=== PATIENT | male | born 1970 | race Caucasian/White ===

== ENCOUNTER → 2022-01-26 09:04 | Outpatient (BNVA) | payer OTHER, SELFPAY | PROVIDERS: Visit Provider Nurse Practitioner Family | DX: E78.5 Hyperlipidemia, unspecified (principal); M10.9 Gout, unspecified; I10 Essential (primary) hypertension; Z72.0 Tobacco use | CPT/HCPCS: 80053; 80061; 84550 ==

== ENCOUNTER → 2023-02-24 11:56 | Outpatient (BNVA) | payer OTHER, SELFPAY | PROVIDERS: PCP Clinical Nurse Specialist Adult Health; Visit Provider Clinical Nurse Specialist Adult Health | DX: I10 Essential (primary) hypertension (principal) | CPT/HCPCS: 80053; 80061; 84443; 85025 ==

== ENCOUNTER 2024-01-16 13:24 | Emergency (ER) | payer OTHER, SELFPAY ==
[2024-01-16 13:36] VITALS: BP 145/79; PULSE 127; RESP 18; TEMP 37; O2SAT 98; BMI 31.3
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
[2024-01-16 14:10] VITALS: BP 145/79; PULSE 127; RESP 18; TEMP 37; O2SAT 98
== END 2024-01-16 14:10 | disposition home or self-care (01) ==
PROVIDERS: Emergency Provider Physician Assistant
DX: Z04.1 Encounter for examination and observation following transport accident (principal); Z79.82 Long term (current) use of aspirin; E78.5 Hyperlipidemia, unspecified; I10 Essential (primary) hypertension; F17.210 Nicotine dependence, cigarettes, uncomplicated; V85.0XXA Driver of special construction vehicle injured in traffic accident, initial encounter
CPT/HCPCS: 99281

== ENCOUNTER 2024-03-22 06:00 | Outpatient (CLI) | payer SELFPAY | END 2024-03-22 06:01 | disposition home or self-care (01) | LOC: RAD 03-25 09:21 | PROVIDERS: PCP Clinical Nurse Specialist Adult Health; Visit Provider Clinical Nurse Specialist Adult Health | DX: Z00.00 Encounter for general adult medical examination without abnormal findings (principal) | CPT/HCPCS: 80053; 80061; 85025 ==

== ENCOUNTER → 2025-04-11 11:20 | Outpatient (BNVA) | payer OTHER, SELFPAY | PROVIDERS: PCP Clinical Nurse Specialist Adult Health; Visit Provider Clinical Nurse Specialist Adult Health | DX: I10 Essential (primary) hypertension (principal); E78.5 Hyperlipidemia, unspecified; M10.9 Gout, unspecified | CPT/HCPCS: 80053; 80061; 84550; 85025 ==